=== PATIENT | male | born 1935 ===

== ENCOUNTER 2017-01-13 10:17 | Emergency (ER) | payer OTHER ==
--- NOTE | 2017-01-13 12:11 | UC ---
Ear Complaint HPI - HPI Summary HPI Summary: FOUR DAYS OF LEFT EAR DISCOMFORT AND DISCHARGE. 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 - History of Current Complaint Chief Complaint: UCEar Stated Complaint: EAR PAIN Time Seen by Provider: 01/13/17 10:36 Hx Obtained From: Patient, Family/Software Testing Specialist Onset/Duration: Gradual Onset, Lasting Days, Still Present Severity Initially: Moderate Severity Currently: Moderate Associated Signs/Symptoms: Positive: Discharge, URI Symptoms - Allergies/Home Medications Allergies/Adverse Reactions: Allergies Allergy/AdvReac Type Severity Reaction Status Date / Time No Known Allergies Allergy Verified 01/13/17 11:01 Home Medications: Home Medications Atorvastatin* [Lipitor*] 20 mg PO 1700 01/13/17 [History Confirmed 01/13/17] Bumetanide TAB* [Bumex TAB*] 1 mg PO DAILY 01/13/17 [History Confirmed 01/13/17] Clopidogrel TAB* [Plavix TAB*] 75 mg PO DAILY 01/13/17 [History Confirmed ] Insulin NPH (Human) (Isophane) [Humulin N Kwikpen] 10 units SUBCUT SEE INSTRUCTIONS 01/13/17 [History Confirmed 01/13/17] Isosorbide Mononitrate ER TAB* [Imdur ER TAB*] 30 mg PO DAILY 01/13/17 [History Confirmed 01/13/17] Lisinopril [Zestril 5 MG-] 5 mg PO DAILY 01/13/17 [History Confirmed 01/13/17] Metformin HCl [Fortamet] 1,000 mg PO BID 01/13/17 [History Confirmed 01/13/17] Metoprolol Succinate [Toprol Xl] 25 mg PO BID 01/13/17 [History Confirmed ] Pantoprazole TAB (NF) [Protonix TAB (NF)] 40 mg PO DAILY 01/13/17 [History Confirmed 01/13/17] Potassium 20 meq PO DAILY 01/13/17 [History Confirmed 01/13/17] Tamsulosin CAP* [Flomax CAP*] 0.4 mg PO DAILY 01/13/17 [History Confirmed ] PMH/Surg Hx/FS Hx/Imm Hx Previously Healthy: Yes Endocrine History Of: Reports: Diabetes Denies: Thyroid Disease Cardiovascular History Of: Reports: Cardiac Disorders - cabgx3 1991, "6 stents" , Hypertension Respiratory History Of: Denies: COPD, Asthma GI/ History Of: Reports: Ulcer - 50 years ago - Surgical History Surgical History: Yes Surgery Procedure, Year, and Place: "i have had many surgary". Gallbladder, herniax3, tonsilectomy, left arm nerve, eye surgary 7x (hit with a baseball 60 years ago" - Family History Known Family History: Positive: Cardiac Disease - Social History Occupation: Retired Lives: With Family Alcohol Use: None Substance Use Type: None Smoking Status (MU): Never Smoked Tobacco - Immunization History Most Recent Influenza Vaccination: utd Most Recent Tetanus Shot: utd Most Recent Pneumonia Vaccination: utd Review of Systems Constitutional: Negative Skin: Negative Eyes: Negative ENT: Ear Ache Respiratory: Negative Cardiovascular: Negative Gastrointestinal: Negative Genitourinary: Negative Motor: Negative Neurovascular: Negative Musculoskeletal: Negative Neurological: Negative Psychological: Negative All Other Systems Reviewed And Are Negative: Yes Physical Exam Triage Information Reviewed: Yes Appearance: Well-Appearing, No Pain Distress, Well-Nourished Vital Signs: Initial Vital Signs Temp 97.7 F 01/13/17 11:08 Pulse 53 01/13/17 11:08 Resp 18 01/13/17 11:08 BP 168/72 01/13/17 11:08 Pulse Ox 100 01/13/17 11:08 Vital Signs Reviewed: Yes Eye Exam: Normal Eyes: Positive: Conjunctiva Clear ENT: Positive: Pharynx normal, Other: - LEFT PERFORATED TM EDEMA OF EAC. Negative: Hearing grossly normal - WEARS HEARING AIDS Dental Exam: Normal Neck exam: Normal Neck: Positive: Supple, Nontender, No Lymphadenopathy Respiratory Exam: Normal Respiratory: Positive: Chest non-tender, Lungs clear, Normal breath sounds, No respiratory distress, No accessory muscle use Cardiovascular Exam: Normal Cardiovascular: Positive: RRR, No Murmur, Pulses Normal Abdominal Exam: Normal Abdomen Description: Positive: Nontender, No Organomegaly Musculoskeletal Exam: Normal Neurological Exam: Normal Psychological Exam: Normal Skin Exam: Normal Ear Complaint Course/Dx - Differential Dx/Diagnosis Differential Diagnosis/HQI/PQRI: Otitis Externa, Otitis Media, Perforated TM, URI Provider Diagnoses: LEFT TM PERFORATION. LEFT OTITIS EXTERNA Discharge - Discharge Plan Condition: Stable Disposition: HOME Prescriptions: Neomyc/Polym/HC 1% OTIC SUSP* [Cortisporin Otic Susp 1%*] 4 drop LEFT EAR QID # 1 btl Patient Education Materials: Otitis Externa (ED), Ruptured Eardrum (ED) Referrals: [facility] [place] [facility] [Outside] Jadiel Tracey MD [Medical Doctor] -
== END 2017-01-13 12:03 | disposition home or self-care (01) ==
LOC: UCEAST 10:17
DX: H72.92 Unspecified perforation of tympanic membrane, left ear (principal); H60.92 Unspecified otitis externa, left ear; Z95.1 Presence of aortocoronary bypass graft; I10 Essential (primary) hypertension; Z90.49 Acquired absence of other specified parts of digestive tract
CPT/HCPCS: 99202; G0463